=== PATIENT | male | born 1975 | race Caucasian/White ===

== ENCOUNTER 2021-06-12 16:44 | Inpatient (IN) | payer MEDICAID ==
[~2021-06-12] VITALS: Ht 167.6 cm; Wt 95.3 kg
[2021-06-12 17:33] LABS: BASOPHILS % (AUTO) 0.6 % (0.0-2.0); HEMATOCRIT 39.6 % (41-53); HEMOGLOBIN 13.2 g/dL (13.5-17.5); LYMPHOCYTES # (AUTO) 2.2 K/uL (1.0-4.8); LYMPHOCYTES % (AUTO) 25.8 % (22.0-44.0); MEAN CORPUSCULAR HEMOGLOBIN 31.9 pg (26.0-34.0); MEAN CORPUSCULAR HGB CONC 33.4 G/dL (31.0-37.0); MEAN CORPUSCULAR VOLUME 95 fL (80-100); MONOCYTES # (AUTO) 0.7 K/uL (0.1-1.0); MONOCYTES % (AUTO) 8.1 % (2.0-9.0); NEUTROPHILS # (AUTO) 5.5 K/uL (1.8-7.7); NEUTROPHILS % (AUTO) 63.5 % (40.0-70.0); PLATELET COUNT (AUTO) 213 K/uL (150-450); RED BLOOD CELL COUNT(AUTO) 4.15 MIL/uL (4.50-5.90); RED CELL DISTRIBUTION WIDTH 13.5 % (11.5-14.5)
[2021-06-12 17:43] LABS: ANION GAP 9 mmol/L (8-16); CALCIUM, TOTAL 8.6 mg/dL (8.8-10.5); CARBON DIOXIDE 25 mmol/L (22-29); CHLORIDE 108 mmol/L (98-107); CREATININE 1.24 mg/dL (0.60-1.30); GLOMERULAR FILTR. RATE CALC > 60 mL/min (>60); GLUCOSE,RANDOM 119 mg/dL (70-110); POTASSIUM 3.8 mmol/L (3.5-5.1); SODIUM SERUM 142 mmol/L (136-145); UREA NITROGEN, BLOOD 14 mg/dL (7-18)
[2021-06-12 17:47] LABS: ALANINE AMINOTRANSFERASE 24 U/L (12-78); ALBUMIN 3.3 g/dL (3.4-5.0); ALKALINE PHOSPHATASE 126 U/L (46-116); ASPARTATE AMINOTRANSFERASE 22 U/L (15-37); BILIRUBIN,TOTAL 0.3 mg/dL (0.1-1.0)
[2021-06-12 23:12] LABS: COVID AG,FIA SOURCE NASOPHARYNGEAL
[2021-06-13 04:03] VITALS: BP 130/80
[2021-06-13 08:20] VITALS: BP 109/75
[2021-06-13] MEDS: OLANZapine 5 MG TABLET PO SCH ×2 (10:54→20:23)
[2021-06-13 16:41] VITALS: BP 120/67
[2021-06-14 01:19] VITALS: BP 126/77
[2021-06-14 08:09] VITALS: BP 130/64
[2021-06-14] MEDS: OLANZapine 5 MG TABLET PO SCH ×2 (08:52→20:46)
[2021-06-14 16:11] VITALS: BP 130/72
[2021-06-15 05:49] VITALS: BP 126/64
[2021-06-15 08:04] LABS: HEMOGLOBIN A1C 5.2 % (3.8-5.6)
[2021-06-15 08:19] VITALS: BP 116/68
[2021-06-15 08:33] LABS: CHOL/HDL RATIO 4.6 (4.2-7.3); FREE T4 (FREE THYROXINE) 0.97 ng/dL (0.76-1.46); THYROID STIMULATING HORMONE 1.97 uIU/mL (0.36-3.74)
[2021-06-15] MEDS: OLANZapine 5 MG TABLET PO SCH (09:06)
[2021-06-15 16:08] VITALS: BP 113/56
[2021-06-15] MEDS: OLANZapine 7.5 MG TABLET PO SCH (20:38)
[2021-06-16 00:17] VITALS: BP 115/63
[2021-06-16 08:04] VITALS: BP 103/52
[2021-06-16] MEDS: OLANZapine 7.5 MG TABLET PO SCH ×2 (08:15→20:09)
[2021-06-16] MEDS: LORazepam 2 MG TABLET PO PRN (16:14)
[2021-06-16] MEDS: HALOPERIDOL 5 MG TABLET PO PRN (16:14)
[2021-06-16 16:17] VITALS: BP 115/69
[2021-06-17 00:06] VITALS: BP 120/77
[2021-06-17] MEDS: OLANZapine 7.5 MG TABLET PO SCH ×2 (08:06→20:06)
[2021-06-17 08:13] VITALS: BP 107/68
[2021-06-17 16:04] VITALS: BP 120/73
[2021-06-17] MEDS ORDERED: ALBUTEROL SULFATE HFA 90 MCG/PUFF 8 GM INHALER IH PRN (20:30)
[2021-06-17] MEDS ORDERED: GuaiFENesin/D-METHORPHAN [SUGAR-FREE] 200-20MG/10 ML SYRUP UDCUP PO PRN (20:30)
[2021-06-17] MEDS ORDERED: CloNIDine HCL 0.1 MG TABLET PO PRN (20:30)
[2021-06-17] MEDS ORDERED: MAGNESIUM HYDROXIDE SUSPENSION 30 ML UDCUP PO PRN (20:30)
[2021-06-17] MEDS ORDERED: ONDANSETRON HCL 4 MG TABLET PO PRN (20:30)
[2021-06-17] MEDS ORDERED: ACETAMINOPHEN 325 MG TABLET PO PRN (20:30)
[2021-06-17] MEDS ORDERED: MAG HYDROX/AL HYDROX/SIMETH ES 30 ML SUSPENSION UDCUP PO PRN (20:30)
[2021-06-17] MEDS ORDERED: DOCUSATE SODIUM 100 MG CAPSULE PO PRN (20:30)
[2021-06-17] MEDS ORDERED: LOPERAMIDE HCL 2 MG CAPSULE PO PRN (20:30)
[2021-06-17] MEDS ORDERED: PETROLATUM,WHITE 28 GM JELLY TP PRN (20:30)
[2021-06-17] MEDS ORDERED: NICOTINE 14 MG/24 HOUR PATCH TD PRN (20:30)
[2021-06-17] MEDS: IBUPROFEN 400 MG TABLET PO PRN (20:51)
[2021-06-18 00:06] VITALS: BP 117/66
[2021-06-18 06:41] LABS: COVID AG,FIA SOURCE NASOPHARYNGEAL
[2021-06-18 08:11] VITALS: BP 121/82
[2021-06-18] MEDS: OLANZapine 7.5 MG TABLET PO SCH ×2 (08:21→20:12)
[2021-06-18] MEDS: SERTRALINE HCL 50 MG TABLET PO SCH (11:50)
[2021-06-18 16:02] VITALS: BP 101/63
[2021-06-19 00:38] VITALS: BP 117/62
[2021-06-19 08:13] VITALS: BP 115/77
[2021-06-19] MEDS: SERTRALINE HCL 50 MG TABLET PO SCH (08:30)
[2021-06-19] MEDS: OLANZapine 7.5 MG TABLET PO SCH ×2 (08:30→20:18)
[2021-06-19 16:17] VITALS: BP 105/70
[2021-06-20 02:54] VITALS: BP 132/91
[2021-06-20 08:18] VITALS: BP 107/60
[2021-06-20] MEDS: OLANZapine 7.5 MG TABLET PO SCH ×2 (08:39→20:13)
[2021-06-20] MEDS: SERTRALINE HCL 50 MG TABLET PO SCH (08:39)
[2021-06-20 16:14] VITALS: BP 111/72
[2021-06-20] MEDS: ZOLPIDEM TARTRATE 10 MG TABLET PO PRN (20:13)
[2021-06-20] MEDS: LORazepam 2 MG TABLET PO PRN (21:14)
[2021-06-20] MEDS: HALOPERIDOL 5 MG TABLET PO PRN (21:14)
[2021-06-21 00:12] VITALS: BP 126/75
[2021-06-21] MEDS: LORazepam 2 MG TABLET PO PRN (02:40)
[2021-06-21 08:32] VITALS: BP 112/60
[2021-06-21] MEDS: OLANZapine 7.5 MG TABLET PO SCH ×2 (08:59→20:25)
[2021-06-21] MEDS: SERTRALINE HCL 50 MG TABLET PO SCH (08:59)
[2021-06-21 16:06] VITALS: BP 115/60
[2021-06-22] MEDS: ZOLPIDEM TARTRATE 10 MG TABLET PO PRN ×2 (00:02→23:07)
[2021-06-22 06:21] VITALS: BP 125/62
[2021-06-22 08:12] VITALS: BP 122/77
[2021-06-22] MEDS: SERTRALINE HCL 50 MG TABLET PO SCH (09:25)
[2021-06-22] MEDS: OLANZapine 7.5 MG TABLET PO SCH (09:25)
[2021-06-22 16:15] VITALS: BP 111/60
[2021-06-22] MEDS: OLANZapine 10 MG TABLET PO SCH (20:09)
[2021-06-22] MEDS: IBUPROFEN 400 MG TABLET PO PRN (21:47)
[2021-06-23 00:05] VITALS: BP 127/79
[2021-06-23] MEDS: LORazepam 2 MG TABLET PO PRN (02:25)
[2021-06-23 08:05] VITALS: BP 106/70
[2021-06-23] MEDS: OLANZapine 10 MG TABLET PO SCH ×2 (09:35→20:34)
[2021-06-23] MEDS: SERTRALINE HCL 100 MG TABLET PO SCH (09:35)
[2021-06-23 16:11] VITALS: BP 109/66
[2021-06-23] MEDS: ZOLPIDEM TARTRATE 10 MG TABLET PO PRN (20:41)
[2021-06-24 00:07] VITALS: BP 111/70
[2021-06-24] MEDS: LORazepam 2 MG TABLET PO PRN (00:10)
[2021-06-24 08:07] VITALS: BP 103/66
[2021-06-24] MEDS: OLANZapine 10 MG TABLET PO SCH ×2 (08:51→20:52)
[2021-06-24] MEDS: SERTRALINE HCL 100 MG TABLET PO SCH (08:51)
[2021-06-24 16:03] VITALS: BP 136/80
[2021-06-24] MEDS: ZOLPIDEM TARTRATE 10 MG TABLET PO PRN (22:05)
[2021-06-25 01:18] VITALS: BP 128/82
[2021-06-25 08:03] VITALS: BP 118/71
[2021-06-25] MEDS: SERTRALINE HCL 100 MG TABLET PO SCH (08:14)
[2021-06-25] MEDS: OLANZapine 10 MG TABLET PO SCH ×2 (08:14→20:25)
[2021-06-25 09:45] LABS: GLUCOMETER DEV NAME(LOC) POC.BV
[2021-06-25 16:13] VITALS: BP 113/80
[2021-06-25] MEDS: ZOLPIDEM TARTRATE 10 MG TABLET PO PRN (21:38)
[2021-06-26 00:05] VITALS: BP 103/66
[2021-06-26] MEDS: LORazepam 2 MG TABLET PO PRN ×2 (00:28→23:48)
[2021-06-26] MEDS: OLANZapine 10 MG TABLET PO SCH ×2 (08:19→20:06)
[2021-06-26] MEDS: SERTRALINE HCL 100 MG TABLET PO SCH (08:19)
[2021-06-26 08:44] VITALS: BP 114/78
[2021-06-26 16:05] VITALS: BP 116/72
[2021-06-26] MEDS: ZOLPIDEM TARTRATE 10 MG TABLET PO PRN (20:50)
[2021-06-26] MEDS: HALOPERIDOL 5 MG TABLET PO PRN (21:26)
[2021-06-27 00:14] VITALS: BP 130/86
[2021-06-27] MEDS: HALOPERIDOL 5 MG TABLET PO PRN ×2 (01:25→21:43)
[2021-06-27] MEDS: SERTRALINE HCL 100 MG TABLET PO SCH (08:21)
[2021-06-27] MEDS: OLANZapine 10 MG TABLET PO SCH ×2 (08:21→20:12)
[2021-06-27 08:51] VITALS: BP 131/70
[2021-06-27 16:01] VITALS: BP 119/67
[2021-06-27] MEDS: LORazepam 2 MG TABLET PO PRN (20:13)
[2021-06-27] MEDS: ZOLPIDEM TARTRATE 10 MG TABLET PO PRN (21:43)
[2021-06-28 06:03] VITALS: BP 108/62
[2021-06-28 08:13] VITALS: BP 118/67
[2021-06-28] MEDS: SERTRALINE HCL 100 MG TABLET PO SCH (08:21)
[2021-06-28] MEDS: OLANZapine 10 MG TABLET PO SCH ×2 (08:21→20:04)
[2021-06-28 16:02] VITALS: BP 100/59
[2021-06-28] MEDS: LORazepam 2 MG TABLET PO PRN (20:05)
[2021-06-28] MEDS: ZOLPIDEM TARTRATE 10 MG TABLET PO PRN (21:39)
[2021-06-28] MEDS: HALOPERIDOL 5 MG TABLET PO PRN (21:39)
[2021-06-29 01:17] VITALS: BP 137/93
[2021-06-29] MEDS: OLANZapine 10 MG TABLET PO SCH ×2 (08:09→20:01)
[2021-06-29] MEDS: SERTRALINE HCL 100 MG TABLET PO SCH (08:09)
[2021-06-29 08:18] VITALS: BP 108/65
[2021-06-29 16:03] VITALS: BP 116/75
[2021-06-29] MEDS: HALOPERIDOL 5 MG TABLET PO PRN (19:37)
[2021-06-29] MEDS: LORazepam 2 MG TABLET PO PRN (19:37)
[2021-06-30 01:04] VITALS: BP 112/75
[2021-06-30 08:15] VITALS: BP 139/60
[2021-06-30] MEDS: OLANZapine 10 MG TABLET PO SCH ×2 (08:32→20:07)
[2021-06-30] MEDS: SERTRALINE HCL 100 MG TABLET PO SCH (08:33)
[2021-06-30 16:21] VITALS: BP 119/70
[2021-07-01 00:52] VITALS: BP 104/65
[2021-07-01] MEDS: HALOPERIDOL 5 MG TABLET PO PRN ×2 (02:03→19:25)
[2021-07-01 08:02] VITALS: BP 122/76
[2021-07-01 08:41] LABS: COVID AG,FIA SOURCE NASOPHARYNGEAL
[2021-07-01] MEDS: SERTRALINE HCL 100 MG TABLET PO SCH (08:44)
[2021-07-01] MEDS: OLANZapine 10 MG TABLET PO SCH ×2 (08:44→20:18)
[2021-07-01 12:25] VITALS: BP 122/76
[2021-07-01 16:07] VITALS: BP 125/78
[2021-07-02 01:17] VITALS: BP 120/75
[2021-07-02] MEDS: SERTRALINE HCL 100 MG TABLET PO SCH (08:35)
[2021-07-02] MEDS: OLANZapine 10 MG TABLET PO SCH ×2 (08:35→19:58)
[2021-07-02 09:01] VITALS: BP 124/77
[2021-07-02] MEDS: HydrOXYzine PAMOATE 50 MG CAPSULE PO PRN (14:20)
[2021-07-02 16:10] VITALS: BP 121/82
[2021-07-02] MEDS: HALOPERIDOL 5 MG TABLET PO PRN (18:41)
[2021-07-02] MEDS: IBUPROFEN 400 MG TABLET PO PRN (22:36)
[2021-07-03 00:59] VITALS: BP 118/71
[2021-07-03] MEDS: HydrOXYzine PAMOATE 50 MG CAPSULE PO PRN (08:15)
[2021-07-03 08:24] VITALS: BP 123/69
[2021-07-03] MEDS ORDERED: SERT-162 PO (08:56)
[2021-07-03] MEDS ORDERED: OLAN10TA74 PO (08:56)
[2021-07-03] MEDS: SERTRALINE HCL 100 MG TABLET PO SCH (09:00)
[2021-07-03] MEDS: OLANZapine 10 MG TABLET PO SCH (09:01)
== END 2021-07-03 13:36 | disposition home or self-care (01) | DRG 750 ==
LOC: EDUNIT# 16:44 → EMS 16:50 → B2S 06-13 01:36
DX: F25.1 Schizoaffective disorder, depressive type (principal); R45.851 Suicidal ideations; E83.51 Hypocalcemia; Z91.5 Personal history of self-harm; F43.12 Post-traumatic stress disorder, chronic; F19.10 Other psychoactive substance abuse, uncomplicated; Z20.822 Contact with and (suspected) exposure to COVID-19; D64.9 Anemia, unspecified; R73.9 Hyperglycemia, unspecified; E66.9 Obesity, unspecified; F15.10 Other stimulant abuse, uncomplicated; F31.9 Bipolar disorder, unspecified; F41.9 Anxiety disorder, unspecified; F12.90 Cannabis use, unspecified, uncomplicated; Z59.0 Homelessness; Z79.899 Other long term (current) drug therapy; Z68.33 Body mass index [BMI] 33.0-33.9, adult
CPT/HCPCS: 80053; 80061; 83036; 84439; 84443; 85025; 99285; G0480

== ENCOUNTER 2021-09-28 09:19 | Inpatient (IN) | payer MEDICAID ==
[~2021-09-28] VITALS: Ht 167.6 cm; Wt 100.5 kg
[~2021-09-28 09:19] MED LIST: OLAN10TA74 PO; SERT-162 PO
[2021-09-28 09:48] LABS: BASOPHILS % (AUTO) 1.4 % (0.0-2.0); EOSINOPHILS % (AUTO) 3.8 % (1.0-6.0); HEMATOCRIT 45.2 % (41-53); HEMOGLOBIN 15.5 g/dL (13.5-17.5); LYMPHOCYTES # (AUTO) 1.6 K/uL (1.0-4.8); MEAN CORPUSCULAR HEMOGLOBIN 32.4 pg (26.0-34.0); MEAN CORPUSCULAR HGB CONC 34.4 G/dL (31.0-37.0); MEAN CORPUSCULAR VOLUME 94 fL (80-100); MONOCYTES # (AUTO) 0.6 K/uL (0.1-1.0); NEUTROPHILS # (AUTO) 2.6 K/uL (1.8-7.7); NEUTROPHILS % (AUTO) 51.8 % (40.0-70.0); PLATELET COUNT (AUTO) 188 K/uL (150-450); RED CELL DISTRIBUTION WIDTH 13.8 % (11.5-14.5)
[2021-09-28 10:07] LABS: ANION GAP 7 mmol/L (8-16); CALCIUM, TOTAL 8.8 mg/dL (8.8-10.5); CARBON DIOXIDE 31 mmol/L (22-29); CHLORIDE 108 mmol/L (98-107); CREATININE 1.05 mg/dL (0.60-1.30); GLOMERULAR FILTR. RATE CALC > 60 mL/min (>60); GLUCOSE,RANDOM 105 mg/dL (70-110); POTASSIUM 4.1 mmol/L (3.5-5.1); SODIUM SERUM 146 mmol/L (136-145); UREA NITROGEN, BLOOD 9 mg/dL (7-18)
[2021-09-28 10:11] LABS: ALANINE AMINOTRANSFERASE 28 U/L (12-78); ALBUMIN 3.3 g/dL (3.4-5.0); ALKALINE PHOSPHATASE 97 U/L (46-116); ASPARTATE AMINOTRANSFERASE 19 U/L (15-37); BILIRUBIN,TOTAL 0.3 mg/dL (0.1-1.0); TOTAL PROTEIN, SERUM 7.5 g/dL (6.4-8.2)
[2021-09-28] MEDS ORDERED: HALOPERIDOL 5 MG TABLET PO ONE (11:00)
[2021-09-28] MEDS ORDERED: LORazepam 1 MG TABLET PO ONE (11:00)
[2021-09-28 11:19] LABS: AMPHET/METH SCREEN,URINE NEGATIVE (NEGATIVE); BARBITURATE SCREEN, URINE NEGATIVE (NEGATIVE); BENZODIAZEPINES SCREEN,URINE NEGATIVE (NEGATIVE); CANNABINOID SCREEN,URINE NEGATIVE (NEGATIVE); COCAINE SCREEN,URINE NEGATIVE (NEGATIVE); METHADONE SCREEN, URINE NEGATIVE (NEGATIVE); OPIATE SCREEN,URINE NEGATIVE (NEGATIVE)
[2021-09-28 11:20] LABS: PHENCYCLIDINE SCREEN,URINE NEGATIVE (NEGATIVE)
[2021-09-28] MEDS ORDERED: PROMETHAZINE HCL 25 MG TABLET PO PRN (11:45)
[2021-09-28] MEDS ORDERED: TUBERCULIN, PURIFIED PROTEIN DERIVATIVE 5 TU/0.1 ML SYRINGE ID ONE (11:45)
[2021-09-28] MEDS ORDERED: OLANZapine 5 MG RAPDIS TABLET PO PRN (11:45)
[2021-09-28] MEDS ORDERED: MAG HYDROX/AL HYDROX/SIMETH ES 30 ML SUSPENSION UDCUP PO PRN (11:45)
[2021-09-28] MEDS ORDERED: PALIPERIDONE PALMITATE 234 MG/1.5 ML SYRINGE IM ONE (11:45)
[2021-09-28] MEDS ORDERED: LOPERAMIDE HCL 2 MG CAPSULE PO PRN (11:45)
[2021-09-28] MEDS ORDERED: MAGNESIUM HYDROXIDE SUSPENSION 30 ML UDCUP PO PRN (11:45)
[2021-09-28] MEDS ORDERED: GuaiFENesin/D-METHORPHAN [SUGAR-FREE] 200-20MG/10 ML SYRUP UDCUP PO PRN (11:45)
[2021-09-28 12:15] LABS: COVID AG,FIA SOURCE NASOPHARYNGEAL
[2021-09-28 19:45] VITALS: BP 132/82
[2021-09-28] MEDS: THIAMINE 100 MG TABLET PO SCH (20:42)
[2021-09-28] MEDS: MELATONIN 5 MG TABLET PO SCH (20:43)
[2021-09-28] MEDS ORDERED: INFLUENZA VIRUS VACCINE QVS 2021-22 (6MO+)/PF 60 MCG/0.5 ML SYRINGE IM. ONE (20:45)
[2021-09-28] MEDS ORDERED: OLANZapine 5 MG RAPDIS TABLET PO SCH (21:00)
[2021-09-28] MEDS ORDERED: NICOTINE 14 MG/24 HOUR PATCH TD PRN (21:15)
[2021-09-29] MEDS: ACETAMINOPHEN 325 MG TABLET PO PRN (04:46)
[2021-09-29 04:47] VITALS: BP 130/80
[2021-09-29 07:30] LABS: HEMOGLOBIN A1C 5.5 % (3.8-5.6)
[2021-09-29 07:45] LABS: CHOL/HDL RATIO 3.3 (4.2-7.3); FREE T4 (FREE THYROXINE) 1.3 ng/dL (0.76-1.46); THYROID STIMULATING HORMONE 1.09 uIU/mL (0.36-3.74)
[2021-09-29 08:00] VITALS: BP 137/92
[2021-09-29] MEDS: THIAMINE 100 MG TABLET PO SCH ×2 (09:51→16:11)
[2021-09-29] MEDS: OMEGA-3/DHA/EPA/FISH OIL 1,000 MG CAPSULE PO SCH (09:51)
[2021-09-29] MEDS: BuPROPion HCL XL 150 MG ER TABLET PO SCH (09:51)
[2021-09-29] MEDS: FOLIC ACID 1 MG TABLET PO SCH (09:51)
[2021-09-29] MEDS: MULTIVITAMINS WITH MINERALS, THERAPEUTIC TABLET PO SCH (09:51)
[2021-09-29] MEDS: NALTREXONE HCL 50 MG TABLET PO SCH (11:53)
[2021-09-29 16:40] VITALS: BP 139/81
[2021-09-29] MEDS: MELATONIN 5 MG TABLET PO SCH (20:18)
[2021-09-30 08:00] VITALS: BP 138/93
[2021-09-30] MEDS: THIAMINE 100 MG TABLET PO SCH ×2 (08:22→16:16)
[2021-09-30] MEDS: FOLIC ACID 1 MG TABLET PO SCH (08:22)
[2021-09-30] MEDS: BuPROPion HCL XL 150 MG ER TABLET PO SCH (08:22)
[2021-09-30] MEDS: NALTREXONE HCL 50 MG TABLET PO SCH (08:22)
[2021-09-30] MEDS: MULTIVITAMINS WITH MINERALS, THERAPEUTIC TABLET PO SCH (08:22)
[2021-09-30] MEDS: DIVALPROEX SODIUM 500 MG ER TABLET PO SCH ×3 (08:22→16:16)
[2021-09-30] MEDS: OMEGA-3/DHA/EPA/FISH OIL 1,000 MG CAPSULE PO SCH (08:22)
[2021-09-30 08:40] VITALS: BP 136/90
[2021-09-30] MEDS: LORazepam 2 MG TABLET PO PRN (08:46)
[2021-09-30 16:00] VITALS: BP 145/90
[2021-09-30] MEDS: MELATONIN 5 MG TABLET PO SCH (20:06)
[2021-10-01] MEDS: ACETAMINOPHEN 325 MG TABLET PO PRN (01:04)
[2021-10-01] MEDS: ZOLPIDEM TARTRATE 10 MG TABLET PO PRN (01:04)
[2021-10-01 01:05] VITALS: BP 140/78
[2021-10-01 06:46] LABS: BASOPHILS % (AUTO) 0.4 % (0.0-2.0); EOSINOPHILS % (AUTO) 1.9 % (1.0-6.0); HEMATOCRIT 42.5 % (41-53); HEMOGLOBIN 14.4 g/dL (13.5-17.5); LYMPHOCYTES # (AUTO) 2.3 K/uL (1.0-4.8); LYMPHOCYTES % (AUTO) 28.9 % (22.0-44.0); MEAN CORPUSCULAR HEMOGLOBIN 32.2 pg (26.0-34.0); MEAN CORPUSCULAR HGB CONC 33.8 G/dL (31.0-37.0); MEAN CORPUSCULAR VOLUME 95 fL (80-100); MONOCYTES # (AUTO) 0.7 K/uL (0.1-1.0); NEUTROPHILS # (AUTO) 4.8 K/uL (1.8-7.7); NEUTROPHILS % (AUTO) 59.8 % (40.0-70.0); PLATELET COUNT (AUTO) 180 K/uL (150-450); RED BLOOD CELL COUNT(AUTO) 4.47 MIL/uL (4.50-5.90); RED CELL DISTRIBUTION WIDTH 14.2 % (11.5-14.5)
[2021-10-01 08:10] VITALS: BP 129/84
[2021-10-01] MEDS: NALTREXONE HCL 50 MG TABLET PO SCH (08:26)
[2021-10-01] MEDS: THIAMINE 100 MG TABLET PO SCH ×2 (08:26→16:16)
[2021-10-01] MEDS: DIVALPROEX SODIUM 500 MG ER TABLET PO SCH ×3 (08:26→16:16)
[2021-10-01] MEDS: FOLIC ACID 1 MG TABLET PO SCH (08:26)
[2021-10-01] MEDS: MULTIVITAMINS WITH MINERALS, THERAPEUTIC TABLET PO SCH (08:26)
[2021-10-01] MEDS: OMEGA-3/DHA/EPA/FISH OIL 1,000 MG CAPSULE PO SCH (08:26)
[2021-10-01] MEDS: BuPROPion HCL XL 150 MG ER TABLET PO SCH (08:27)
[2021-10-01] MEDS: PredniSONE 20 MG TABLET PO SCH (10:22)
[2021-10-01] MEDS: DOCUSATE SODIUM 100 MG CAPSULE PO SCH (16:16)
[2021-10-01] MEDS: MELATONIN 5 MG TABLET PO SCH (20:29)
[2021-10-02 03:00] VITALS: BP 136/95
[2021-10-02] MEDS: HydrOXYzine PAMOATE 50 MG CAPSULE PO PRN ×3 (03:11→20:36)
[2021-10-02] MEDS: MULTIVITAMINS WITH MINERALS, THERAPEUTIC TABLET PO SCH (08:07)
[2021-10-02] MEDS: DIVALPROEX SODIUM 500 MG ER TABLET PO SCH ×3 (08:09→16:38)
[2021-10-02] MEDS: PredniSONE 20 MG TABLET PO SCH (08:09)
[2021-10-02] MEDS: OMEGA-3/DHA/EPA/FISH OIL 1,000 MG CAPSULE PO SCH (08:09)
[2021-10-02] MEDS: THIAMINE 100 MG TABLET PO SCH ×2 (08:09→16:39)
[2021-10-02] MEDS: DOCUSATE SODIUM 100 MG CAPSULE PO SCH ×2 (08:09→16:39)
[2021-10-02] MEDS: NALTREXONE HCL 50 MG TABLET PO SCH (08:09)
[2021-10-02] MEDS: BuPROPion HCL XL 150 MG ER TABLET PO SCH (08:09)
[2021-10-02] MEDS: FOLIC ACID 1 MG TABLET PO SCH (08:09)
[2021-10-02 08:15] VITALS: BP 139/91
[2021-10-02] MEDS: LORazepam 2 MG TABLET PO PRN (08:53)
[2021-10-02] MEDS ORDERED: PALIPERIDONE PALMITATE 156 MG/ML SYRINGE IM ONE (09:00)
[2021-10-02 16:42] VITALS: BP 136/80
[2021-10-02] MEDS ORDERED: QUEtiapine FUMARATE 100 MG TABLET PO ONE (18:45)
[2021-10-02] MEDS: MELATONIN 5 MG TABLET PO SCH (20:46)
[2021-10-02] MEDS: ZOLPIDEM TARTRATE 10 MG TABLET PO PRN (23:47)
[2021-10-02] MEDS: QUEtiapine FUMARATE 100 MG TABLET PO PRN (23:47)
[2021-10-03] MEDS: FOLIC ACID 1 MG TABLET PO SCH (08:41)
[2021-10-03] MEDS: NALTREXONE HCL 50 MG TABLET PO SCH (08:41)
[2021-10-03] MEDS: THIAMINE 100 MG TABLET PO SCH ×2 (08:41→17:20)
[2021-10-03] MEDS: PredniSONE 20 MG TABLET PO SCH (08:41)
[2021-10-03] MEDS: BuPROPion HCL XL 150 MG ER TABLET PO SCH (08:41)
[2021-10-03] MEDS: DIVALPROEX SODIUM 500 MG ER TABLET PO SCH ×3 (08:41→17:20)
[2021-10-03] MEDS: MULTIVITAMINS WITH MINERALS, THERAPEUTIC TABLET PO SCH (08:41)
[2021-10-03] MEDS: DOCUSATE SODIUM 100 MG CAPSULE PO SCH ×2 (08:41→17:20)
[2021-10-03] MEDS: OMEGA-3/DHA/EPA/FISH OIL 1,000 MG CAPSULE PO SCH (08:41)
[2021-10-03 09:19] VITALS: BP 129/85
[2021-10-03 16:09] VITALS: BP 142/78
[2021-10-03] MEDS: LORazepam 2 MG TABLET PO PRN (17:54)
[2021-10-03] MEDS: ZOLPIDEM TARTRATE 10 MG TABLET PO PRN (21:00)
[2021-10-03] MEDS: MELATONIN 5 MG TABLET PO SCH (21:00)
[2021-10-04 08:23] VITALS: BP 126/74
[2021-10-04] MEDS: FOLIC ACID 1 MG TABLET PO SCH (09:41)
[2021-10-04] MEDS: BuPROPion HCL XL 150 MG ER TABLET PO SCH (09:41)
[2021-10-04] MEDS: PredniSONE 20 MG TABLET PO SCH (09:41)
[2021-10-04] MEDS: OMEGA-3/DHA/EPA/FISH OIL 1,000 MG CAPSULE PO SCH (09:41)
[2021-10-04] MEDS: DIVALPROEX SODIUM 500 MG ER TABLET PO SCH ×3 (09:41→17:23)
[2021-10-04] MEDS: MULTIVITAMINS WITH MINERALS, THERAPEUTIC TABLET PO SCH (09:41)
[2021-10-04] MEDS: NALTREXONE HCL 50 MG TABLET PO SCH (09:41)
[2021-10-04] MEDS: THIAMINE 100 MG TABLET PO SCH ×2 (09:41→17:23)
[2021-10-04] MEDS: DOCUSATE SODIUM 100 MG CAPSULE PO SCH ×2 (09:42→17:23)
[2021-10-04 14:19] LABS: COVID AG,FIA SOURCE NASAL SWAB
[2021-10-04 16:17] VITALS: BP 146/97
[2021-10-04] MEDS: QUEtiapine FUMARATE 100 MG TABLET PO PRN (19:34)
[2021-10-04] MEDS: ZOLPIDEM TARTRATE 10 MG TABLET PO PRN (21:31)
[2021-10-04] MEDS: MELATONIN 5 MG TABLET PO SCH (21:31)
[2021-10-05 02:14] VITALS: BP 135/80
[2021-10-05] MEDS: LORazepam 2 MG TABLET PO PRN (02:14)
[2021-10-05 08:38] VITALS: BP 136/70
[2021-10-05] MEDS: DIVALPROEX SODIUM 500 MG ER TABLET PO SCH ×3 (08:39→15:56)
[2021-10-05] MEDS: MULTIVITAMINS WITH MINERALS, THERAPEUTIC TABLET PO SCH (08:39)
[2021-10-05] MEDS: NALTREXONE HCL 50 MG TABLET PO SCH (08:39)
[2021-10-05] MEDS: FOLIC ACID 1 MG TABLET PO SCH (08:39)
[2021-10-05] MEDS: PredniSONE 20 MG TABLET PO SCH (08:39)
[2021-10-05] MEDS: DOCUSATE SODIUM 100 MG CAPSULE PO SCH ×2 (08:39→15:56)
[2021-10-05] MEDS: THIAMINE 100 MG TABLET PO SCH ×2 (08:39→15:56)
[2021-10-05] MEDS: BuPROPion HCL XL 150 MG ER TABLET PO SCH (08:40)
[2021-10-05] MEDS: OMEGA-3/DHA/EPA/FISH OIL 1,000 MG CAPSULE PO SCH (08:40)
[2021-10-05 16:41] VITALS: BP 167/114
[2021-10-05] MEDS: MELATONIN 5 MG TABLET PO SCH (20:40)
[2021-10-06] MEDS: ACETAMINOPHEN 325 MG TABLET PO PRN (04:19)
[2021-10-06 04:23] VITALS: BP 139/88
[2021-10-06 06:04] LABS: BASOPHILS % (AUTO) 0.7 % (0.0-2.0); EOSINOPHILS % (AUTO) 0.7 % (1.0-6.0); HEMOGLOBIN 13.9 g/dL (13.5-17.5); LYMPHOCYTES # (AUTO) 3.1 K/uL (1.0-4.8); LYMPHOCYTES % (AUTO) 36.6 % (22.0-44.0); MEAN CORPUSCULAR HEMOGLOBIN 32.4 pg (26.0-34.0); MEAN CORPUSCULAR VOLUME 95 fL (80-100); MONOCYTES # (AUTO) 0.7 K/uL (0.1-1.0); NEUTROPHILS # (AUTO) 4.6 K/uL (1.8-7.7); PLATELET COUNT (AUTO) 170 K/uL (150-450); RED BLOOD CELL COUNT(AUTO) 4.29 MIL/uL (4.50-5.90); RED CELL DISTRIBUTION WIDTH 13.9 % (11.5-14.5)
[2021-10-06 06:31] LABS: ALANINE AMINOTRANSFERASE 23 U/L (12-78); ALBUMIN 2.8 g/dL (3.4-5.0); ALKALINE PHOSPHATASE 77 U/L (46-116); ANION GAP 5 mmol/L (8-16); ASPARTATE AMINOTRANSFERASE 25 U/L (15-37); BILIRUBIN,TOTAL 0.4 mg/dL (0.1-1.0); CALCIUM, TOTAL 8.4 mg/dL (8.8-10.5); CARBON DIOXIDE 29 mmol/L (22-29); CHLORIDE 108 mmol/L (98-107); CREATININE 0.93 mg/dL (0.60-1.30); GLOMERULAR FILTR. RATE CALC > 60 mL/min (>60); GLUCOSE,RANDOM 116 mg/dL (70-110); POTASSIUM 4.5 mmol/L (3.5-5.1); SODIUM SERUM 142 mmol/L (136-145); TOTAL PROTEIN, SERUM 6.7 g/dL (6.4-8.2); UREA NITROGEN, BLOOD 14 mg/dL (7-18); VALPROIC ACID 60 mcg/mL (50-100)
[2021-10-06] MEDS ORDERED: DIVA-80 PO (08:11)
[2021-10-06] MEDS ORDERED: OMEG-135 PO (08:11)
[2021-10-06] MEDS ORDERED: PALI117D IM (08:11)
[2021-10-06] MEDS ORDERED: NALT50TA PO (08:11)
[2021-10-06] MEDS ORDERED: BUPR-49 PO (08:11)
[2021-10-06] MEDS ORDERED: MELA5TAB40 PO (08:11)
[2021-10-06] MEDS: FOLIC ACID 1 MG TABLET PO SCH (08:40)
[2021-10-06] MEDS: DIVALPROEX SODIUM 500 MG ER TABLET PO SCH ×2 (08:40→12:39)
[2021-10-06] MEDS: THIAMINE 100 MG TABLET PO SCH (08:40)
[2021-10-06] MEDS: NALTREXONE HCL 50 MG TABLET PO SCH (08:40)
[2021-10-06] MEDS: DOCUSATE SODIUM 100 MG CAPSULE PO SCH (08:40)
[2021-10-06] MEDS: OMEGA-3/DHA/EPA/FISH OIL 1,000 MG CAPSULE PO SCH (08:40)
[2021-10-06] MEDS: PredniSONE 20 MG TABLET PO SCH (08:40)
[2021-10-06] MEDS: BuPROPion HCL XL 150 MG ER TABLET PO SCH (08:41)
[2021-10-06] MEDS: MULTIVITAMINS WITH MINERALS, THERAPEUTIC TABLET PO SCH (08:41)
[2021-10-06 08:47] VITALS: BP 128/88
[2021-10-06] MEDS ORDERED: PRED20 PO (09:10)
== END 2021-10-06 13:05 | disposition home or self-care (01) | DRG 750 ==
LOC: EMS 09:19 → 3EI 18:36
PROVIDERS: ADMIT Psychiatry & Neurology Psychiatry; ATTEND Psychiatry & Neurology Psychiatry
DX: F25.1 Schizoaffective disorder, depressive type (principal); E88.09 Other disorders of plasma-protein metabolism, not elsewhere classified; R45.851 Suicidal ideations; E86.0 Dehydration; D64.9 Anemia, unspecified; F41.9 Anxiety disorder, unspecified; F12.90 Cannabis use, unspecified, uncomplicated; F14.90 Cocaine use, unspecified, uncomplicated; F31.9 Bipolar disorder, unspecified; Z20.822 Contact with and (suspected) exposure to COVID-19; F43.10 Post-traumatic stress disorder, unspecified; J44.9 Chronic obstructive pulmonary disease, unspecified; Z55.9 Problems related to education and literacy, unspecified; Z59.00 Homelessness unspecified; Z63.9 Problem related to primary support group, unspecified; Z65.3 Problems related to other legal circumstances; Z79.899 Other long term (current) drug therapy; Z91.410 Personal history of adult physical and sexual abuse; Z91.51 Personal history of suicidal behavior; Z28.21 Immunization not carried out because of patient refusal
CPT/HCPCS: 80053; 80061; 80164; 83036; 84439; 84443; 85025; 86592; 99285; G0480; Q9967

== ENCOUNTER 2022-07-11 15:17 | Emergency (ER) | payer MEDICAID ==
[~2022-07-11] VITALS: Ht 167.6 cm; Wt 100.0 kg
[~2022-07-11 15:17] MED LIST changes: +BUPR-49 PO; +DIVA-80 PO; +MELA5TAB40 PO; +NALT50TA PO; -OLAN10TA74 PO; +OMEG-135 PO; +PALI117D IM; +PRED-554 PO; -SERT-162 PO
[2022-07-11 16:11] LABS: BASOPHILS % (AUTO) 0.5 % (0.0-2.0); EOSINOPHILS % (AUTO) 2.6 % (1.0-6.0); HEMATOCRIT 39.2 % (41-53); HEMOGLOBIN 13.5 g/dL (13.5-17.5); LYMPHOCYTES # (AUTO) 1.4 K/uL (1.0-4.8); LYMPHOCYTES % (AUTO) 20.6 % (22.0-44.0); MEAN CORPUSCULAR HEMOGLOBIN 31.8 pg (26.0-34.0); MEAN CORPUSCULAR HGB CONC 34.4 G/dL (31.0-37.0); MEAN CORPUSCULAR VOLUME 93 fL (80-100); MONOCYTES # (AUTO) 0.5 K/uL (0.1-1.0); MONOCYTES % (AUTO) 6.7 % (2.0-9.0); NEUTROPHILS # (AUTO) 4.7 K/uL (1.8-7.7); NEUTROPHILS % (AUTO) 69.6 % (40.0-70.0); PLATELET COUNT (AUTO) 234 K/uL (150-450); RED BLOOD CELL COUNT(AUTO) 4.24 MIL/uL (4.50-5.90); RED CELL DISTRIBUTION WIDTH 13.8 % (11.5-14.5)
[2022-07-11 16:22] LABS: ANION GAP 1 mmol/L (8-16); CALCIUM, TOTAL 8.8 mg/dL (8.8-10.5); CARBON DIOXIDE 29 mmol/L (22-29); CHLORIDE 104 mmol/L (98-107); CREATININE 1.32 mg/dL (0.60-1.30); GLUCOSE,RANDOM 106 mg/dL (70-110); POTASSIUM 3.6 mmol/L (3.5-5.1); SODIUM SERUM 134 mmol/L (136-145); UREA NITROGEN, BLOOD 11 mg/dL (7-18)
[2022-07-11 16:23] LABS: GLOMERULAR FILTR. RATE CALC 59 mL/min (>60)
[2022-07-11 16:28] LABS: ALANINE AMINOTRANSFERASE 31 U/L (12-78); ALBUMIN 3.8 g/dL (3.4-5.0); ALKALINE PHOSPHATASE 123 U/L (46-116); ASPARTATE AMINOTRANSFERASE 26 U/L (15-37); BILIRUBIN,TOTAL 0.3 mg/dL (0.1-1.0); TOTAL PROTEIN, SERUM 7.7 g/dL (6.4-8.2)
[2022-07-11] MEDS ORDERED: OLAN10TA74 PO (17:00)
[2022-07-11] MEDS ORDERED: MECL-134 PO (17:00)
[2022-07-11] MEDS ORDERED: CLOZ25TA5 PO (17:00)
[2022-07-11] MEDS ORDERED: ACET-3385 PO (17:00)
[2022-07-11] MEDS ORDERED: ACET650S24 PR (17:00)
[2022-07-11] MEDS ORDERED: ONDA-104 PO (17:00)
[2022-07-11] MEDS ORDERED: ARIP10TA38 PO (17:00)
[2022-07-11] MEDS ORDERED: PRAZ2 PO (17:00)
[2022-07-11] MEDS ORDERED: FURO20 PO (17:00)
[2022-07-11] MEDS ORDERED: FAMO20 PO (17:00)
[2022-07-11] MEDS ORDERED: HYDR50CA7 PO (17:00)
[2022-07-11] MEDS ORDERED: DiphenhydrAMINE HCL 25 MG CAPSULE PO ONE (17:00)
[2022-07-11] MEDS ORDERED: LORA-1000 PO (17:00)
[2022-07-11] MEDS ORDERED: TRAZ-252 PO (17:00)
[2022-07-11] MEDS ORDERED: DOCU-385 PO (17:00)
[2022-07-11] MEDS ORDERED: LORazepam 2 MG TABLET PO ONE (17:00)
[2022-07-11 17:56] VITALS: BP 128/88
== END 2022-07-11 19:57 | disposition home or self-care (01) ==
LOC: EMS 15:17
DX: F98.4 Stereotyped movement disorders (principal); F20.9 Schizophrenia, unspecified; F31.9 Bipolar disorder, unspecified; F41.9 Anxiety disorder, unspecified; F12.90 Cannabis use, unspecified, uncomplicated
CPT/HCPCS: 99283; 80053; 85025; 36415; G0480

== ENCOUNTER 2025-05-24 08:03 | Emergency (ER) | payer MEDICAID ==
[~2025-05-24] VITALS: Ht 167.6 cm; Wt 93.2 kg
[~2025-05-24 08:03] MED LIST changes: +ACET-3385 PO; +ARIP10TA38 PO; +ATOR10TA PO; +CLOZ100T61 PO; +CLOZ25TA52 PO; +DIVA-153 PO; -DIVA-80 PO; +DOCU-385 PO; +FAMO20 PO; +FURO20TA5 PO; +HYDR50CA7 PO; +IBUP-1493 PO; +LEVO25TA9 PO; +LITH300C3 PO; +LORA1TAB25 PO; +MECL-302 PO; +METF-1211 PO; +MIRT-89 PO; -NALT50TA PO; +NALT50TA6 PO; +OLAN10TA74 PO; -OMEG-135 PO; +OMEG100033 PO; +ONDA-104 PO; +PRAZ5 PO; +RISP-32 PO; +TRAZ-257 PO; +VENL-68 PO
[2025-05-24 08:05] VITALS: BP 112/75; PULSE 76; RESP 18; TEMP 98.2; O2SAT 99
== END 2025-05-24 08:37 | disposition home or self-care (01) ==
LOC: EMS 08:04
DX: S01.511D Laceration without foreign body of lip, subsequent encounter (principal); F41.9 Anxiety disorder, unspecified; F12.90 Cannabis use, unspecified, uncomplicated; F20.9 Schizophrenia, unspecified; Z79.52 Long term (current) use of systemic steroids; Z79.84 Long term (current) use of oral hypoglycemic drugs; Z79.899 Other long term (current) drug therapy; W19.XXXD Unspecified fall, subsequent encounter
CPT/HCPCS: 99281; Z7502